=== PATIENT | male | born 1990 | race Caucasian/White ===

== ENCOUNTER 2017-08-02 14:22 | Emergency (ER) | payer OTHER ==
[~2017-08-02] VITALS: Ht 180.3 cm; Wt 95.3 kg
[2017-08-02] MEDS ORDERED: DICLOFENAC SODI50 MG PO (20:07)
[2017-08-02] MEDS ORDERED: PERCOCET 5-3251 EACH PO (20:07)
== END 2017-08-02 20:52 | disposition home or self-care (01) ==
LOC: ER 14:22
DX: S52.591A Other fractures of lower end of right radius, initial encounter for closed fracture (principal); S52.611A Displaced fracture of right ulna styloid process, initial encounter for closed fracture; W18.09XA Striking against other object with subsequent fall, initial encounter; Y93.89 Activity, other specified; Y92.69 Other specified industrial and construction area as the place of occurrence of the external cause; Y99.8 Other external cause status